=== PATIENT | female | born 1950 | race Caucasian/White ===

== ENCOUNTER → 2020-03-17 12:51 | Outpatient (BNVA) | payer MEDICARE, SELFPAY | PROVIDERS: PCP Internal Medicine; Referring Provider Internal Medicine; Visit Provider Internal Medicine | DX: E89.0 Postprocedural hypothyroidism (principal); R59.0 Localized enlarged lymph nodes; E55.9 Vitamin D deficiency, unspecified; I82.629 Acute embolism and thrombosis of deep veins of unspecified upper extremity; Z85.850 Personal history of malignant neoplasm of thyroid; Z79.899 Other long term (current) drug therapy | CPT/HCPCS: 99212 ==

== ENCOUNTER 2020-04-30 09:04 | Outpatient (REF) | payer MEDICARE, SELFPAY ==
[2020-04-30 09:40] LABS: MANUAL DIFF FLAG NO
[2020-04-30 09:53] LABS: Basophils Percent Auto 0.3 % (0-2); Eosinophils Absolute Auto 0.1 X10*3/uL (0.0-0.4); Eosinophils Percent Auto 1.2 % (0-4); Hematocrit 41.3 % (37-47); Hemoglobin 13.8 g/dl (12.0-16.0); Imm Gran Abs Auto 0.01 X10*3/uL (0.00-0.03); Imm Gran Pct Auto 0.2 % (0.0-0.4); Lymphocytes Absolute Auto 2.4 X10*3/uL (1.2-4.9); Lymphocytes Percent Auto 39.8 % (20-40); Mean Corpuscular HGB Conc 33.4 g/dl (31.0-35.0); Mean Corpuscular Hemoglobin 31.2 pg (27.0-33.0); Mean Corpuscular Volume 93.4 fL (80-98); Mean Platelet Volume 9.1 fL (9.4-12.3); Monocytes Absolute Auto 0.5 X10*3/uL (0.1-1.2); Monocytes Percent Auto 7.9 % (2-11); Neutrophils Percent Auto 50.6 % (45-73); Platelet Count 251 X10*3/uL (160-400); Red Blood Count 4.42 X10*6/uL (4.20-5.50); Red Cell Distribution Width 12.6 % (11.0-16.0)
[2020-04-30 10:07] LABS: D Dimer < 200 NG/ML
[2020-04-30 10:22] LABS: Alanine Aminotransferase 18 U/L (0-31); Alkaline Phosphatase 70 U/L (39-117); Anion Gap 12 (12-20); Aspartate Amino Transferase 19 U/L (5-31); Bilirubin Total 0.9 mg/dL (0.0-1.0); Blood Urea Nitrogen 11 mg/dL (9-16); Calcium 9.3 mg/dL (8.4-10.2); Carbon Dioxide 30 mmol/L (22-29); Chloride 104 mmol/L (96-108); Cholesterol 199 mg/dL; Estimated Glomerular Filt Rate > 60; Glucose Fasting 100 mg/dL (60-99); HDL Cholesterol 36 mg/dL; LDL Cholesterol Calculated 119 mg/dl; Potassium 4.6 mmol/l (3.3-5.1); Sodium 141 mmol/L (135-145); Total Protein 7.4 g/dL (6.5-8.0); Triglycerides 222 mg/dL
[2020-04-30 10:49] LABS: Free T4 (Free Thyroxine) 1.39 ng/dL (0.71-1.85); Thyroid Stimulating Hormone 0.11 uIU/mL (0.32-4.0); Vitamin D 25-OH Total 18.1 ng/mL (>30)
[2020-04-30 10:59] LABS: Folate 11.1 ng/mL (> or = 4.0); Vitamin B12 597 pg/mL (200-900)
[2020-05-01 08:58] LABS: Triiodothyronine T3 Total 118 ng/dL (76-181)
[2020-05-03 17:26] LABS: Thyroglobulin 0.3 ng/mL; Thyroglobulin Antibodies <1 IU/mL (< or = 1)
== END 2020-04-30 09:05 | disposition home or self-care (01) ==
LOC: HO.LAB 09:04
PROVIDERS: Internal Medicine; Absent Provider Internal Medicine; PCP Internal Medicine; Visit Provider Internal Medicine
DX: E55.9 Vitamin D deficiency, unspecified (principal); J45.909 Unspecified asthma, uncomplicated; Z00.00 Encounter for general adult medical examination without abnormal findings; Z85.850 Personal history of malignant neoplasm of thyroid; E03.9 Hypothyroidism, unspecified; I10 Essential (primary) hypertension; E78.00 Pure hypercholesterolemia, unspecified; E89.0 Postprocedural hypothyroidism; R59.0 Localized enlarged lymph nodes
CPT/HCPCS: 36415; 80053; 80061; 82306; 82607; 82746; 84432; 84439; 84443; 84480; 85025; 85379; 86800

== ENCOUNTER 2020-05-10 10:03 | Outpatient (REF) | payer MEDICARE, SELFPAY ==
--- NOTE | 2020-05-10 10:06 | CT_ITS ---
EXAMINATION: CT CHEST WITHOUT CONTRAST CLINICAL INFORMATION: Cervical lymphadenopathy. Pulmonary nodules. COMPARISON: 01/22/2020 and 01/21/2019 as well as studies dating back to 04/11/2011. TECHNIQUE: Multidetector volumetric CT imaging of the chest was done. Axial MIP volume rendering provided. Sagittal and coronal reformatted images were obtained. This CT examination was performed using dose optimization techniques as appropriate, variously including the following: *Automated exposure control *Adjustment of mA and/or kV according to patient size (this includes techniques or standardized protocols for targeted exams where dose is matched to indication/reason for exam; i.e. extremities or head) *Use of iterative reconstruction technique DLP: 152 mGy-cm FINDINGS: LUNGS: Central airways are patent. There is some mild changes of centrilobular emphysema seen within the upper lobes bilaterally. No significant bronchial wall thickening. No bronchiectasis. There are some scattered sub-4 mm densities present. There is some mild interstitial disease seen about the medial aspect of the right lower lobe. There are a few scattered small calcified granulomas seen. There is bilateral apical pleural-parenchymal disease present. There is noted to be an approximately 6.3 x 3 mm noncalcified subpleural nodule within the right apex on image 56 of 591. This is stable. There is a 4 mm noncalcified nodule seen within the right middle lobe on image 344 of 591. This is stable. There is a 4 mm noncalcified nodule seen within the right upper lobe on image 156 of 591. This is stable. There is a 4 mm noncalcified nodule seen within the right lower lobe on image 415 of 591. This is stable. There is a 5 x 5 mm density seen posterior aspect of the right lower lobe on image 295 of 591 which is not calcified. This is stable. MEDIASTINUM: Heart normal size. Coronary artery calcification present. No pericardial effusion. No thoracic aortic aneurysm. No mediastinal or hilar lymphadenopathy appreciated. Status post thyroidectomy with clips in place. PLEURA: There is no pleural effusion. No pleural mass or thickening. AXILLA: No lymphadenopathy. UPPER ABDOMEN: Status post cholecystectomy. OSSEOUS STRUCTURES: No suspicious destructive bony lesions identified. Multilevel degenerative disc disease with spurring is present. CT/CT chest wo con IMPRESSION: Old granulomatous disease. Stable bilateral nodular densities as described.
== END 2020-05-10 10:04 | disposition home or self-care (01) ==
LOC: HO.CT 10:03
PROVIDERS: PCP Internal Medicine; Visit Provider Internal Medicine Pulmonary Disease
DX: R91.8 Other nonspecific abnormal finding of lung field (principal)
CPT/HCPCS: 71250

== ENCOUNTER 2020-05-10 11:01 | Outpatient (REF) | payer MEDICARE, SELFPAY | END 2020-05-10 11:02 | disposition home or self-care (01) | LOC: HO.LAB 11:01 | PROVIDERS: PCP Internal Medicine; Visit Provider Internal Medicine | DX: Z20.828 Contact with and (suspected) exposure to other viral communicable diseases (principal) | CPT/HCPCS: C9803; U0003 ==

== ENCOUNTER → 2020-06-16 11:25 | Outpatient (BNVA) | payer MEDICARE, SELFPAY | PROVIDERS: PCP Internal Medicine; Visit Provider Internal Medicine | DX: Z13.89 Encounter for screening for other disorder (principal) | CPT/HCPCS: Q3014 ==

== ENCOUNTER 2020-06-25 11:30 | Outpatient (REF) | payer MEDICARE, SELFPAY | END 2020-06-25 11:31 | disposition home or self-care (01) | LOC: HO.LAB 11:30 | PROVIDERS: PCP Internal Medicine; Visit Provider Internal Medicine | DX: Z20.822 Contact with and (suspected) exposure to COVID-19 (principal) | CPT/HCPCS: 36415; C9803; U0003; U0005 ==

== ENCOUNTER 2020-07-22 10:02 | Outpatient (REF) | payer MEDICARE, SELFPAY ==
--- NOTE | ~2020-07-22 | US_ITS ---
EXAMINATION: US SOFT TISSUE NECK CLINICAL INFORMATION: Postprocedural hypothyroidism. COMPARISON: None TECHNIQUE: Ultrasound of the neck soft tissues is performed with high- frequency jerez-scale imaging and color Doppler. FINDINGS: THYROID BED: Prior thyroidectomy. No residual thyroid tissue demonstrated in the thyroid bed. No cystic or solid nodules demonstrated in the thyroid bed. RIGHT NECK SOFT TISSUES: Scattered architecturally normal nodes are present. The nodes show normal fatty hilus, normal cortical thickness, and no cystic change or calcification. No abnormal color flow. The largest nodes are as follows: Level IIb: 2.5 x 8.2 x 1.2 cm. Normal erika architecture. LEFT NECK SOFT TISSUES: Scattered architecturally normal nodes are present. The nodes show normal fatty hilus, normal cortical thickness, and no cystic change or calcification. No abnormal color flow. The largest nodes are as follows: Level IIb: 0.65 x 0.34 x 0.72 cm. Normal erika architecture. Level III: 1.21 x 0.40 x 0.81 cm. Absent hilum. Level III: 0.53 x 0.30 x 0.50 cm. Absent hilum. Level III: 0.74 x 0.38 x 0.60 cm. Absent hilum. US/US soft tiss head and/or neck IMPRESSION: 1. No residual thyroid tissue seen. 2. Three suspicious lymph nodes in the left neck level III. 3. If clinically indicated further evaluation of the neck soft tissues and nodes may be performed with CT soft tissue neck with intravenous contrast.
== END 2020-07-22 10:03 | disposition home or self-care (01) ==
LOC: HO.HMGCX 10:02
PROVIDERS: PCP Internal Medicine; Visit Provider Internal Medicine
DX: E89.0 Postprocedural hypothyroidism (principal)
CPT/HCPCS: 76536

== ENCOUNTER → 2020-08-19 12:09 | Outpatient (BNVA) | payer MEDICARE, SELFPAY | PROVIDERS: PCP Internal Medicine; Visit Provider Internal Medicine | DX: Z13.89 Encounter for screening for other disorder (principal) | CPT/HCPCS: Q3014 ==

== ENCOUNTER 2020-09-14 08:06 | Outpatient (REF) | payer MEDICARE, SELFPAY ==
[2020-09-14 09:30] LABS: Estimated Average Glucose 111 mg/dL; Hemoglobin A1c % 5.5 %
[2020-09-14 09:46] LABS: Alanine Aminotransferase 14 U/L (0-31); Albumin Level 4.2 g/dL (3.5-5.0); Alkaline Phosphatase 75 U/L (39-117); Anion Gap 11 (12-20); Aspartate Amino Transferase 17 U/L (5-31); Bilirubin Total 1.1 mg/dL (0.0-1.0); Blood Urea Nitrogen 12 mg/dL (9-16); Calcium 9.9 mg/dL (8.4-10.2); Carbon Dioxide 31 mmol/L (22-29); Chloride 106 mmol/L (96-108); Cholesterol 202 mg/dL; Estimated Glomerular Filt Rate > 60; Glucose Random 101 mg/dL (60-115); HDL Cholesterol 38 mg/dL; LDL Cholesterol Calculated 145 mg/dl; Potassium 4.9 mmol/L (3.3-5.1); Sodium 143 mmol/L (135-145); Total Protein 7.4 g/dL (6.5-8.0); Triglycerides 99 mg/dL
[2020-09-14 10:09] LABS: Free T4 (Free Thyroxine) 1.09 ng/dL (0.71-1.85); Thyroid Stimulating Hormone 0.17 uIU/mL (0.32-4.0); Vitamin D 25-OH Total 20.5 ng/mL (>30)
[2020-09-15 16:57] LABS: Thyroglobulin 0.4 ng/mL
[2020-09-15 21:21] LABS: Thyroglobulin Antibodies <1 IU/mL (< or = 1)
== END 2020-09-14 08:07 | disposition home or self-care (01) ==
LOC: HO.LAB 08:06
PROVIDERS: Absent Provider Internal Medicine; PCP Internal Medicine; Visit Provider Internal Medicine
DX: E55.9 Vitamin D deficiency, unspecified (principal); E78.00 Pure hypercholesterolemia, unspecified; Z85.850 Personal history of malignant neoplasm of thyroid
CPT/HCPCS: 36415; 80053; 80061; 82306; 83036; 84432; 84439; 84443; 86800

== ENCOUNTER 2020-10-28 08:32 | Outpatient (REF) | payer MEDICARE, SELFPAY ==
--- NOTE | ~2020-10-28 | MM_ITS ---
EXAMINATION: MM SCREENING DIGITAL BREAST TOMOSYNTHESIS, BILATERAL CLINICAL INFORMATION: Screening. Asymptomatic. The lifetime risk of breast cancer based on the Tyrer-Cuzick Model is 2.0%. COMPARISON: Mammography: September 05, 2018 and studies dating back to February 17, 2013 TECHNIQUE: Digital breast tomosynthesis is performed in both the craniocaudal and mediolateral oblique views along with computer-aided detection (CAD). Synthesized 2D images are generated from the tomosynthesis. FINDINGS: The breasts are heterogeneously dense, which may obscure small masses (ACR BI-RADS breast composition Category c). There are no significant masses, abnormal calcifications, or other abnormalities. MM/MM tomosynthesis screening BI IMPRESSION: There are no significant changes from prior study. ASSESSMENT: BI-RADS 1: Negative RECOMMENDATION: Routine annual mammography screening. This patient's information was entered into a reminder system with a target due date for their next mammogram.
== END 2020-10-28 08:33 | disposition home or self-care (01) ==
LOC: HO.MAMMO 08:32
PROVIDERS: Visit Provider Internal Medicine
DX: Z12.31 Encounter for screening mammogram for malignant neoplasm of breast (principal)
CPT/HCPCS: 77063; 77067

== ENCOUNTER → 2020-12-06 08:30 | Outpatient (BNVA) | payer MEDICARE, SELFPAY | PROVIDERS: PCP Internal Medicine; Visit Provider Internal Medicine | DX: Z85.850 Personal history of malignant neoplasm of thyroid (principal) | CPT/HCPCS: 96372 ==

== ENCOUNTER 2020-12-07 09:33 | Outpatient (REF) | payer MEDICARE, SELFPAY ==
[2020-12-07 14:52] LABS: Thyroid Stimulating Hormone > 100.00 uIU/mL (0.32-4.0)
[2020-12-08 12:42] LABS: Thyroglobulin 0.6 ng/mL
[2020-12-08 18:42] LABS: Thyroglobulin Antibodies <1 IU/mL (< or = 1)
== END 2020-12-07 09:34 | disposition home or self-care (01) ==
LOC: HO.LAB 09:33
PROVIDERS: PCP Internal Medicine; Referring Provider Internal Medicine; Visit Provider Internal Medicine Endocrinology, Diabetes & Metabolism
DX: Z85.850 Personal history of malignant neoplasm of thyroid (principal)
CPT/HCPCS: 36415; 84432; 84443; 86800; 96372

== ENCOUNTER 2020-12-08 09:22 | Outpatient (REF) | payer MEDICARE, SELFPAY ==
[2020-12-08 11:12] LABS: Thyroid Stimulating Hormone > 100.00 uIU/mL (0.32-4.0)
[2020-12-09 10:03] LABS: Thyroglobulin 1.5 ng/mL; Thyroglobulin Antibodies <1 IU/mL (< or = 1)
== END 2020-12-08 09:23 | disposition home or self-care (01) ==
LOC: HO.LAB 09:22
PROVIDERS: PCP Internal Medicine; Visit Provider Internal Medicine
DX: Z85.850 Personal history of malignant neoplasm of thyroid (principal)
CPT/HCPCS: 36415; 84432; 84443; 86800

== ENCOUNTER 2020-12-10 10:30 | Outpatient (REF) | payer MEDICARE, SELFPAY ==
[2020-12-10 12:38] LABS: Free T4 (Free Thyroxine) 1.66 ng/dL (0.71-1.85); Thyroid Stimulating Hormone 24.91 uIU/mL (0.32-4.0)
[2020-12-10 12:51] LABS: Alanine Aminotransferase 8 U/L (0-31); Albumin Level 4.2 g/dL (3.5-5.0); Alkaline Phosphatase 76 U/L (39-117); Anion Gap 13 (12-20); Aspartate Amino Transferase 16 U/L (5-31); Bilirubin Total 0.8 mg/dL (0.0-1.0); Blood Urea Nitrogen 9 mg/dL (9-16); Calcium 9.7 mg/dL (8.4-10.2); Carbon Dioxide 26 mmol/L (22-29); Chloride 107 mmol/L (96-108); Cholesterol 190 mg/dL; Estimated Glomerular Filt Rate > 60; Glucose Random 104 mg/dL (60-115); HDL Cholesterol 36 mg/dL; LDL Cholesterol Calculated 114 mg/dl; Potassium 4.1 mmol/L (3.3-5.1); Sodium 142 mmol/L (135-145); Total Protein 7.6 g/dL (6.5-8.0); Triglycerides 200 mg/dL
[2020-12-11 10:02] LABS: Thyroglobulin 2.6 ng/mL; Thyroglobulin Antibodies <1 IU/mL (< or = 1)
== END 2020-12-10 10:31 | disposition home or self-care (01) ==
LOC: HO.LAB 10:30
PROVIDERS: PCP Internal Medicine; Visit Provider Internal Medicine
DX: E89.0 Postprocedural hypothyroidism (principal); E78.00 Pure hypercholesterolemia, unspecified; Z85.850 Personal history of malignant neoplasm of thyroid
CPT/HCPCS: 36415; 80053; 80061; 84432; 84439; 84443; 86800

== ENCOUNTER → 2021-01-06 10:36 | Outpatient (BNVA) | payer MEDICARE, SELFPAY | PROVIDERS: PCP Internal Medicine; Visit Provider Internal Medicine | CPT/HCPCS: Q3014 ==

== ENCOUNTER 2021-06-15 12:27 | Outpatient (REF) | payer MEDICARE, SELFPAY ==
--- NOTE | ~2021-06-15 | XR_ITS ---
EXAMINATION: XR CHEST CLINICAL INFORMATION: Back pain COMPARISON: None TECHNIQUE: 2 views of the chest were obtained. FINDINGS: The lungs are well-expanded and clear. Heart size and perivascular is normal. There is moderate ventral spondylosis dorsal spine. XR/XR chest 2V IMPRESSION: Unremarkable chest examination.
[2021-06-15 12:42] LABS: MANUAL DIFF FLAG NO
[2021-06-15 13:38] LABS: Basophils Percent Auto 0.3 % (0-2); Eosinophils Absolute Auto 0.1 X10*3/uL (0.0-0.4); Eosinophils Percent Auto 1.1 % (0-4); Hematocrit 43.2 % (37.0-47.0); Hemoglobin 14.2 g/dl (12.0-16.0); Imm Gran Abs Auto 0.02 X10*3/uL (0.00-0.03); Imm Gran Pct Auto 0.3 % (0.0-0.4); Lymphocytes Absolute Auto 2.8 X10*3/uL (1.2-4.9); Lymphocytes Percent Auto 42.5 % (20-40); Mean Corpuscular HGB Conc 32.9 g/dl (31.0-35.0); Mean Corpuscular Hemoglobin 30.7 pg (27.0-33.0); Mean Corpuscular Volume 93.3 fL (80.0-98.0); Mean Platelet Volume 9.1 fL (9.4-12.3); Monocytes Absolute Auto 0.5 X10*3/uL (0.1-1.2); Monocytes Percent Auto 7.1 % (2-11); Neutrophils Absolute Auto 3.2 x10*3/uL (2.0-8.3); Neutrophils Percent Auto 48.7 % (45-73); Platelet Count 251 X10*3/uL (160-400); Red Blood Count 4.63 X10*6/uL (4.20-5.50); White Blood Count 6.5 X10*3/uL (4.8-10.8)
[2021-06-15 14:12] LABS: Alanine Aminotransferase 14 U/L (0-31); Albumin Level 4.3 g/dL (3.5-5.0); Alkaline Phosphatase 75 U/L (39-117); Anion Gap 12 (12-20); Aspartate Amino Transferase 19 U/L (5-31); Blood Urea Nitrogen 15 mg/dL (9-16); Carbon Dioxide 28 mmol/L (22-29); Chloride 106 mmol/L (96-108); Cholesterol 234 mg/dL; Estimated Glomerular Filt Rate 58; Glucose Random 95 mg/dL (60-115); HDL Cholesterol 38 mg/dL; LDL Cholesterol Calculated 161 mg/dl; Potassium 4.4 mmol/L (3.3-5.1); Sodium 142 mmol/L (135-145); Total Protein 7.9 g/dL (6.5-8.0); Triglycerides 178 mg/dL
[2021-06-15 14:37] LABS: Folate 15.3 ng/mL (> or = 4.0); Free T4 (Free Thyroxine) 1.07 ng/dL (0.71-1.85); Vitamin B12 476 pg/mL (200-900); Vitamin D 25-OH Total 17.8 ng/mL (>30)
== END 2021-06-15 12:28 | disposition home or self-care (01) ==
LOC: HO.LAB 12:27
PROVIDERS: PCP Internal Medicine; Visit Provider Internal Medicine
DX: E78.00 Pure hypercholesterolemia, unspecified (principal); E89.0 Postprocedural hypothyroidism; M54.9 Dorsalgia, unspecified
CPT/HCPCS: 36415; 71046; 80053; 80061; 82306; 82607; 82746; 84439; 84443; 85025

== ENCOUNTER 2021-06-24 08:57 | Outpatient (REF) | payer MEDICARE, SELFPAY ==
--- NOTE | ~2021-06-24 | CT_ITS ---
EXAMINATION: CT CHEST WITHOUT CONTRAST CLINICAL INFORMATION: Solitary pulmonary nodule COMPARISON: Chest x-ray 06/15/[address] 05/10/2020 TECHNIQUE: Multidetector volumetric CT imaging of the chest was done. Axial MIP volume rendering provided. Sagittal and coronal reformatted images were obtained. This CT examination was performed using dose optimization techniques as appropriate, variously including the following: *Automated exposure control *Adjustment of mA and/or kV according to patient size (this includes techniques or standardized protocols for targeted exams where dose is matched to indication/reason for exam; i.e. extremities or head) *Use of iterative reconstruction technique DLP: 157 mGy-cm FINDINGS: The heart is normal in size. Coronary artery calcifications are present. There is no pericardial effusion. No gross mediastinal lymphadenopathy. No enlarged axillary lymph nodes. Central airways are patent. Lungs are well aerated. There is no lobar consolidation, pleural effusion or pneumothorax. There is minimal biapical scarring. Several previously visualized subcentimeter pulmonary nodules are stable, the largest measuring approximately 6 mm. No new suspicious pulmonary nodules visualized. Visualized portions of the upper abdomen demonstrate surgical changes consistent with prior cholecystectomy. Moderate diffuse degenerative changes of the spine. CT/CT chest wo con IMPRESSION: -Previously visualized subcentimeter pulmonary nodules are stable. No new suspicious pulmonary nodules visualized. Fleischner guidelines were followed.
== END 2021-06-24 08:58 | disposition home or self-care (01) ==
LOC: HO.CT 08:57
PROVIDERS: PCP Internal Medicine; Visit Provider Internal Medicine
DX: R91.1 Solitary pulmonary nodule (principal)
CPT/HCPCS: 71250

== ENCOUNTER → 2021-09-16 10:40 | Outpatient (BNVA) | payer MEDICARE, SELFPAY | PROVIDERS: PCP Internal Medicine; Visit Provider Advanced Practice Midwife | DX: Z01.419 Encounter for gynecological examination (general) (routine) without abnormal findings (principal) ==

== ENCOUNTER → 2024-01-16 13:55 | Outpatient (RCR) | payer MEDICARE, SELFPAY ==
[2020-03-09 11:34] VITALS: BP 159/75; PULSE 55; RESP 18; TEMP 36.3; O2SAT 97
[2020-03-09 11:35] VITALS: BMI 29.7
--- NOTE | 2020-03-09 14:07 | PM.HEMONCCN ---
Subjective - Subjective Chief complaint: Blood clot Consult date: 03/09/20 Requesting Physician: Poonam Cleveland MD Primary Care Provider: Poonam Cleveland MD HPI - Consult Narrative Reason for consult: Right neck DVT Narrative: Erika Briceno I is a 69 year old female who was diagnosed with DVT involving right neck diagnosed in January 2020. She has a history of thyroid cancer, underwent thyroidectomy many years ago. Patient was sent for ultrasound biopsy of thyroid, thrombus was visualized in the right internal jugular vein, reported as chronic. She was sent to the emergency room where workup revealed elevated D-dimer, lower extremity Doppler was negative for DVT. CT angiogram showed no pulmonary embolism. D-dimer was over 3125 NG/mL. 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 She has been started on anticoagulation with Xarelto which she is taking daily. She denies any problems such as bruising or bleeding. She however states that she feels a little numbness over her ankles since she started this medication. Review of Systems - Constitutional Reports as per HPI, Reports no additional constitutional complaints - Cardiovascular Reports as per HPI, Reports no additional cardiovascular complaints [facility] Medical History: Medical History (Last Updated 03/09/20 @ 15:08 by Belem Khan MD) Anxiety Asthma Fibromyalgia Osteoarthritis Thrombosis of right internal jugular vein Thyroid cancer Vocal cord anomaly Surgical History: Surgical History (Last Updated 03/09/20 @ 15:08 by Belem Khan MD) H/O left knee surgery H/O thyroidectomy H/O: hysterectomy History of appendectomy Smoking status: Never smoker Home Medications and Allergies Home Medications Medication Instructions Recorded Confirmed Type albuterol sulfate 2 puff INHALATION Q4H PRN 03/09/20 03/09/20 History albuterol sulfate 2 puff INHALATION Q4H PRN 03/09/20 03/09/20 History budesonide-formoterol [Symbicort] 2 puff PO BID 03/09/20 03/09/20 History calcium carbonate-vitamin D3 1 tab PO BID 03/09/20 03/09/20 History [Calcium 600 + D(3)] cetirizine 1 tab PO DAILY 03/09/20 03/09/20 History cholecalciferol (vitamin D3) 1 tab PO DAILY 03/09/20 03/09/20 History [Vitamin D3] cyanocobalamin (vitamin B-12) 1 tab PO DAILY 03/09/20 03/09/20 History levothyroxine 1 tab PO QAM 03/09/20 03/09/20 History lisinopril 1 tab PO DAILY 03/09/20 03/09/20 History rivaroxaban [Xarelto] 1 tab PO DAILY 03/09/20 03/09/20 History tramadol 1 tab PO BID PRN 03/09/20 03/09/20 History Allergies Allergy/AdvReac Type Severity Reaction Status Date / Time aspirin [ASPIRIN] Allergy Severe NAUSEA, Verified 03/09/20 12:33 DIZZINESS Physical Exam Vital signs: Vital Signs Temp 97.4 F 03/09/20 11:34 Pulse 55 03/09/20 11:34 Resp 18 03/09/20 11:34 BP 159/75 H 03/09/20 11:34 Pulse Ox 97 03/09/20 11:34 Intake & Output 03/08/20 03/09/20 03/09/20 18:59 06:59 18:59 Other: Weight 78.5 kg Weight 78.5 kg - Constitutional Present: no acute distress - Routine HEENT Exam Head: Present: normal inspection Eye: Present: EOMI - Routine Neck Exam Present: supple, full ROM. 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 This was detected incidentally when she went for ultrasound guided biopsy of a right neck node. She has a history of papillary thyroid cancer and she was being monitored, fortunately, the lymph node appears to be stable in size and quite small, non suspicious for malignancy. It is unclear as to the duration of the DVT. She did not have any symptoms but because of elevated D-dimer it is prudent for her to receive at least 3 months of anticoagulation. There is no personal or family history of thromboembolism. Usually, upper extremity DVT occurs in the setting of IV catheter/line placement. This could have occurred in the remote past or in relation to her previous thyroid surgery. I have deferred thrombophilia workup at this time. She is up-to-date in screening studies such as mammogram and colonoscopy. I have advised her to stay on Xarelto until her next visit. I thank you very much for this consultation. Follow-up in 2 months.
[2020-05-10 09:43] VITALS: BP 134/71; PULSE 60; RESP 12; TEMP 36.2; O2SAT 98; BMI 28.9
--- NOTE | 2020-05-10 09:48 | P.PNHO_ITS ---
Medical Summary - Medical Summary Date of Service: 05/10/20 Chief complaint: Follow-up Medical Summary: Diagnosis chronic right internal jugular vein thrombus diagnosed on 03/09/2020. Patient was sent for ultrasound biopsy of thyroid, thrombus was visualized in the right internal jugular vein, reported as chronic. She was sent to the emergency room where workup revealed elevated D-dimer, lower extremity Doppler was negative for DVT. CT angiogram showed no pulmonary embolism. D-dimer was over 3125 NG/mL. 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 She has been started on anticoagulation with Xarelto which she is taking daily. Interval History Interval history: Patient is here in follow-up. She is doing fine now and has no complaints. Specifically she denies any neck pain, swelling or arm pain/swelling. She has been on Xarelto once a day and reports no bruising or bleeding. She has not yet been scheduled for thyroid biopsy. She is going for an ultrasound today. She denies any leg swelling or pain. No pleuritic chest pain, shortness of breath or cough. No fever or chills. Review of Systems - Constitutional Reports no additional constitutional complaints - Cardiovascular Reports no additional cardiovascular complaints - Respiratory Reports no additional respiratory complaints [facility] Medical History: Medical History (Last Updated 05/09/20 @ 17:00 by Poonam Cleveland MD) Alcohol abuse Anxiety Asthma Carpal tunnel syndrome of left wrist Cervical lymphadenopathy Fatty liver Fibromyalgia GERD (gastroesophageal reflux disease) History of internal jugular thrombosis History of thyroid cancer Hypercholesterolemia Hypertension Insomnia Irritable bowel syndrome Lumbar degenerative disc disease Obstructive sleep apnea Osteoarthritis Postoperative hypothyroidism Pulmonary nodule Substance abuse Thrombosis of right internal jugular vein Thyroid cancer Vitamin D deficiency Vocal cord mass Family History: Family History (Last Reviewed 03/17/20 @ 12:40 by Linda Barrios DO) Father Cancer Macular degeneration Mother Macular degeneration Glaucoma Surgical History: Surgical History (Last Updated 05/09/20 @ 17:00 by Poonam Cleveland MD) H/O left knee surgery H/O thyroidectomy H/O: hysterectomy History of appendectomy History of cochlear implant Smoking status: Never smoker Oncology Screenings - ECOG Performance Status ECOG Performance Status: 1 Home Medications and Allergies Home Medications Medication Instructions Recorded Confirmed Type albuterol sulfate 2 puff INHALATION Q4H PRN 03/09/20 03/17/20 History albuterol sulfate 2 puff INHALATION Q4H PRN 03/09/20 03/17/20 History budesonide-formoterol [Symbicort] 2 puff PO BID 03/09/20 03/17/20 History calcium carbonate-vitamin D3 1 tab PO BID 03/09/20 03/17/20 History [Calcium 600 + D(3)] cetirizine 1 tab PO DAILY 03/09/20 03/17/20 History cholecalciferol (vitamin D3) 1 tab PO DAILY 03/09/20 03/17/20 History [Vitamin D3] cyanocobalamin (vitamin B-12) 1 tab PO DAILY 03/09/20 03/17/20 History levothyroxine 1 tab PO QAM 03/09/20 03/17/20 History lisinopril 1 tab PO DAILY 03/09/20 03/17/20 History rivaroxaban [Xarelto] 1 tab PO DAILY 03/09/20 03/17/20 History fluticasone propionate 110 2 puff INHALATION BID 05/07/20 05/10/20 History mcg/actuation HFA aerosol inhaler Allergies Allergy/AdvReac Type Severity Reaction Status Date / Time aspirin [ASPIRIN] Allergy Severe NAUSEA, Verified 03/17/20 12:37 DIZZINESS Exam Vital signs: Vital Signs Temp 97.2 F 05/10/20 09:43 Pulse 60 05/10/20 09:43 Resp 12 05/10/20 09:43 BP 134/71 05/10/20 09:43 Pulse Ox 98 05/10/20 09:43 Intake & Output 05/09/20 05/10/20 05/10/20 18:59 06:59 18:59 Other: Weight 76.5 kg Weight 76.5 kg Body Mass Index 28.9 - Constitutional Present: no acute distress - Routine HEENT Exam Head: Present: normal inspection - Routine Respiratory Exam Present: CTAB - Routine Cardiovascular Exam Cardiovascular: Present: RRR, S1, S2 - Routine Abdominal Exam Present: soft Progress Note: A/P (1) DVT (deep venous thrombosis) Status: Chronic Assessment and plan: This is a pleasant 69-year-old woman, nonsmoker who was noted to have 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 This was detected incidentally when she went for ultrasound guided biopsy of a right neck node. She has a history of papillary thyroid cancer and she was being monitored, fortunately, the lymph node appears to be stable in size and quite small, non suspicious for malignancy. It is unclear as to the duration of the DVT. She did not have any symptoms but because of elevated D-dimer it is prudent for her to receive at least 3 months of anticoagulation. There is no personal or family history of thromboembolism. Usually, upper extremity DVT occurs in the setting of IV catheter/line placement. She has been on Xarelto 10 mg daily for 3 months. I have asked her to discontinue anticoagulation at this time. Repeat D-dimer performed 04/30/2020, is less than 200. Follow-up as needed. - Time Spent With Patient Total time spent is greater than 50% in coordination of care (as documented) at patient's floor/unit and/or counseling patient: 15 - 24 minutes
== END | disposition home or self-care (01) ==
LOC: HO.ONC 03-09 11:01
PROVIDERS: PCP Internal Medicine; Visit Provider Internal Medicine
DX: I82.C21 Chronic embolism and thrombosis of right internal jugular vein (principal); Z85.850 Personal history of malignant neoplasm of thyroid; Z79.01 Long term (current) use of anticoagulants
CPT/HCPCS: 99204; 99214